=== PATIENT | male | born 1945 | race Caucasian/White ===

== ENCOUNTER 2020-04-08 08:48 | Outpatient (CLI) | payer MEDICARE ==
[2020-04-08] MEDS ORDERED: FLUMAZENIL 0.1 MG/1 ML, 5ML ONE (09:38)
[2020-04-08] MEDS ORDERED: FENTANYL PF 100 MCG/2ML ONE (09:38)
[2020-04-08] MEDS ORDERED: NALOXONE 1 MG/ML, 2ML ONE (09:38)
[2020-04-08] MEDS ORDERED: MIDAZOLAM 1 MG/ML, 5ML ONE (09:38)
== END 2020-04-08 23:59 | disposition home or self-care (01) ==
LOC: RAD 08:48
PROVIDERS: ATTEND Physician Assistant
DX: M50.323 Other cervical disc degeneration at C6-C7 level (principal); M48.02 Spinal stenosis, cervical region; M51.34 Other intervertebral disc degeneration, thoracic region; I10 Essential (primary) hypertension; E11.9 Type 2 diabetes mellitus without complications; Z79.84 Long term (current) use of oral hypoglycemic drugs; Z79.899 Other long term (current) drug therapy; Z88.0 Allergy status to penicillin; Z88.8 Allergy status to other drugs, medicaments and biological substances; Z91.040 Latex allergy status
CPT/HCPCS: 72141; 72146; 99156; 99157; J2250; J3010; J2310

== ENCOUNTER 2020-07-14 11:45 | Outpatient (CLI) | payer MEDICARE ==
[2020-07-14] MEDS ORDERED: MIDAZOLAM 1 MG/ML, 5ML ONE (12:33)
[2020-07-14] MEDS ORDERED: FENTANYL PF 100 MCG/2ML ONE (12:33)
[2020-07-14] MEDS ORDERED: NALOXONE 1 MG/ML, 2ML ONE (12:33)
[2020-07-14] MEDS ORDERED: FLUMAZENIL 0.1 MG/1 ML, 5ML ONE (12:33)
== END 2020-07-14 23:59 | disposition home or self-care (01) ==
LOC: RAD 11:45
PROVIDERS: ATTEND Nurse Practitioner
DX: M48.061 Spinal stenosis, lumbar region without neurogenic claudication (principal); M48.02 Spinal stenosis, cervical region; I10 Essential (primary) hypertension; M43.16 Spondylolisthesis, lumbar region; E11.9 Type 2 diabetes mellitus without complications; G47.30 Sleep apnea, unspecified; Z79.84 Long term (current) use of oral hypoglycemic drugs; Z79.891 Long term (current) use of opiate analgesic; Z79.899 Other long term (current) drug therapy; Z88.0 Allergy status to penicillin; Z88.8 Allergy status to other drugs, medicaments and biological substances; Z91.040 Latex allergy status; Z98.1 Arthrodesis status; Z82.49 Family history of ischemic heart disease and other diseases of the circulatory system; Z80.9 Family history of malignant neoplasm, unspecified
CPT/HCPCS: 72148; 99156; 99157; J2250; J3010; J2310